=== PATIENT | male | born 1955 | race Caucasian/White ===

== ENCOUNTER 2019-04-20 16:27 | Inpatient (IN) ==
[2019-04-20] MEDS ORDERED: HEPARIN SODIUM IN D5W 25,000 UNITS/500 ML BAG IV PRN ×2 (17:11→17:16)
--- NOTE | 2019-04-20 17:56 | DR.UPDATE ---
H&P Update History and Physical Update: History and Physical reviewed and patient examined. Changes noted: Yes with the following: PRESENTED TO OUR OFFICE TODAY WITH COMPLAINTS OF SHORTNESS OF BREATH AND LEFT LOWER LEG PAIN AND SWELLING. HE WAS SENT FOR OUTPATIENT VENOUS DOPPLER AND CHEST CTA. LOWER EXTREMITY VENOUS DOPPLER WAS POSITIVE FOR DVT IN THE LEFT POPLITEAL VEIN. CHEST CTA IS POSITIVE FOR ACUTE PULMONARY EMBOLI IN THE SEGMENTAL AND SUBSEGMENTAL BRANCHES OF THE RIGHT MIDDLE LOBE AND [place]. WE ADMITTED PATIENT FOR FURTHER EVALUATION AND TREATMENT. ON ADMISSION, WE PLAN TO OBTAIN A CBC, CMP, PT/INR AND PTT. WE WILL ALSO OBTAIN A HYPER COAG PANEL. WE WILL START NORMAL SALINE AT 80ML/HR AND A HEPARIN DRIP. OTHERWISE, WE PLAN TO FOLLOW UP WITH AM LABS AND CONTINUE TO MONITOR. Prescription drug monitoring program results: PDMP was not reviewed
[2019-04-20 17:57] LABS: BASOPHILS % (AUTO) 0.5 % (0.2-1.0); EOSINOPHILS # (AUTO) 0.2 x10^3/uL (0.0-0.2); EOSINOPHILS % (AUTO) 2.4 % (0.9-2.9); HEMATOCRIT 42.9 % (42.0-54.0); HEMOGLOBIN 15.2 g/dL (13.5-18.0); LYMPHOCYTES # (AUTO) 1.8 X10^3/uL (1.3-2.9); LYMPHOCYTES % (AUTO) 24.6 % (21.0-51.0); MEAN CORPUSCULAR HEMOGLOBIN 34.2 pg (27.0-34.0); MEAN CORPUSCULAR HGB CONC 35.5 g/dL (33.0-35.0); MEAN CORPUSCULAR VOLUME 96.5 fL (80.0-100.0); MEAN PLATELET VOLUME 7.3 fL (7.4-11.0); MONOCYTES # (AUTO) 0.6 x10^3/uL (0.3-0.8); NEUTROPHILS # (AUTO) 4.5 x10^3/uL (2.2-4.8); NEUTROPHILS % (AUTO) 63.5 % (42.0-75.0); PLATELET COUNT 180 X10^3/uL (150.0-450.0); RED BLOOD COUNT 4.45 X10^6/uL (4.7-6.0); RED CELL DISTRIBUTION WIDTH 14.1 % (11.6-16.5); WHITE BLOOD COUNT 7.1 X10^3/uL (3.6-10.0)
[2019-04-20 18:09] LABS: ALANINE AMINOTRANSFERASE 24 Units/L (12-78); ALBUMIN 4.2 g/dL (3.4-5.0); ALKALINE PHOSPHATASE 85 Units/L (46-116); ASPARTATE AMINO TRANSFERASE 20 Units/L (15-37); BLOOD UREA NITROGEN 9 mg/dL (7-18); CALCIUM 9.5 mg/dL (8.5-10.1); CARBON DIOXIDE 27.8 mmol/L (21-32); CHLORIDE 101 mmol/L (98-107); CREATININE 1.13 mg/dL (0.70-1.30); SODIUM 137 mmol/L (136-145); TOTAL PROTEIN 8.3 g/dL (6.4-8.2); eGFR NON BLACK RACES > 60 (>60)
[2019-04-20] MEDS ORDERED: PREVNAR 13 IM ONE (18:10)
[2019-04-20] MEDS ORDERED: AFLURIA II4 or FLUARIX II4 IM ONE (18:10)
[2019-04-20] MEDS ORDERED: HEPARIN SODIUM INJ 5000 UNITS ONE (18:13)
[2019-04-20] MEDS: NS 1000 ML 1,000 ML IV SCH (18:32)
[2019-04-20 19:25] LABS: ERYTHROCYTE SEDIMENTATION RATE 13 MM/HOUR (0-15)
[2019-04-21] MEDS ORDERED: HEPARIN SODIUM INJ 5000 UNITS IVP ONE (01:15)
[2019-04-21] MEDS ORDERED: HEPARIN SODIUM INJ 5000 UNITS ONE (01:18)
[2019-04-21] MEDS: NS 1000 ML 1,000 ML IV SCH ×2 (05:51→20:34)
[2019-04-21 07:24] LABS: BASOPHILS % (AUTO) 0.6 % (0.2-1.0); EOSINOPHILS # (AUTO) 0.2 x10^3/uL (0.0-0.2); EOSINOPHILS % (AUTO) 2.2 % (0.9-2.9); HEMATOCRIT 42.1 % (42.0-54.0); HEMOGLOBIN 14.6 g/dL (13.5-18.0); LYMPHOCYTES # (AUTO) 2.1 X10^3/uL (1.3-2.9); LYMPHOCYTES % (AUTO) 28.1 % (21.0-51.0); MEAN CORPUSCULAR HEMOGLOBIN 33.7 pg (27.0-34.0); MEAN CORPUSCULAR HGB CONC 34.8 g/dL (33.0-35.0); MEAN CORPUSCULAR VOLUME 96.9 fL (80.0-100.0); MEAN PLATELET VOLUME 7.5 fL (7.4-11.0); MONOCYTES # (AUTO) 0.6 x10^3/uL (0.3-0.8); MONOCYTES % (AUTO) 7.5 % (0.0-13.0); NEUTROPHILS # (AUTO) 4.6 x10^3/uL (2.2-4.8); NEUTROPHILS % (AUTO) 61.6 % (42.0-75.0); PLATELET COUNT 161 X10^3/uL (150.0-450.0); RED BLOOD COUNT 4.35 X10^6/uL (4.7-6.0); RED CELL DISTRIBUTION WIDTH 13.9 % (11.6-16.5); WHITE BLOOD COUNT 7.4 X10^3/uL (3.6-10.0)
[2019-04-21 07:36] LABS: ALANINE AMINOTRANSFERASE 22 Units/L (12-78); ALBUMIN 3.5 g/dL (3.4-5.0); ALKALINE PHOSPHATASE 76 Units/L (46-116); ASPARTATE AMINO TRANSFERASE 20 Units/L (15-37); BLOOD UREA NITROGEN 7 mg/dL (7-18); CALCIUM 8.8 mg/dL (8.5-10.1); CARBON DIOXIDE 27.2 mmol/L (21-32); CHLORIDE 103 mmol/L (98-107); CREATININE 0.89 mg/dL (0.70-1.30); SODIUM 138 mmol/L (136-145); TOTAL PROTEIN 7.1 g/dL (6.4-8.2); eGFR NON BLACK RACES > 60 (>60)
[2019-04-21] MEDS ORDERED: LEVSIN SYRUP PO PRN (10:01)
[2019-04-21] MEDS: ELIQUIS PO SCH ×2 (10:03→21:25)
[2019-04-21] MEDS ORDERED: CHOLESTYRAMINE PO SCH (10:15)
[2019-04-21] MEDS ORDERED: [UNRECOGNIZED DRUG - OTHER] PO SCH (10:15)
[2019-04-21] MEDS ORDERED: NEURONTIN CAP 400 MG PO ONE (10:47)
[2019-04-21] MEDS: ZESTORETIC 10/ 12.5MG PO SCH (11:00)
[2019-04-21] MEDS: NexIUM PO SCH (11:24)
[2019-04-21] MEDS: SYNTHROID 125 mcg TAB PO SCH (11:25)
[2019-04-21] MEDS: ZYLOPRIM PO SCH (11:25)
[2019-04-21] MEDS: TOPROL XL PO SCH (11:25)
[2019-04-21] MEDS ORDERED: NEURONTIN CAP 400 MG PO SCH (21:00)
[2019-04-21] MEDS ORDERED: FLOMAX PO SCH (21:00)
--- NOTE | 2019-04-21 21:08 | PCM.PROG ---
Progress Note - Progress Note for Day of Date of Exam: 04/21/19 - Subjective Subjective: IS BEING TREATED FOR A LEFT POPLITEAL VEIN DVT AND ACUTE PULMONARY EMBOLI. HE REMAINS IN THE INTENSIVE CARE UNIT TODAY ON A HEPARIN DRIP. HE CONTINUES WITH MILD SHORTNESS OF BREATH TODAY AND SWELLING TO THE LEFT LOWER EXTREMITY. ON EXAMINATION, HEART IS REGULAR IN RATE AND RHYTHM. BILATERAL LUNGS ARE NOTED WITH DIMINISHED LUNG SOUNDS THROUGHOUT. ABDOMEN IS ROUND, SOFT, AND NON-TENDER WITH NORMAL BOWEL SOUNDS NOTED IN ALL QUADRANTS. HIS VITALS THIS MORNING ARE: 97.9-80-24-97%-152/91. LABS WERE OBTAINED. ABNORMAL LAB VALUES INCLUDE THE FOLLOWING: RBC 4.35, D-DIMER 2830. HYPERCOAG PANEL IS PENDING. TODAY, WE WILL DISCONTINUE THE HEPARIN DRIP. WE WILL START ELIQUIS 10MG PO BID AND RESUME HIS HOME MEDICATIONS. OTHERWISE, WE WILL FOLLOW UP WITH AM LABS AND CONTINUE TO MONITOR. - Past Medical Family Social History Past Med/Fam/Surg Hx: No changes since H&P Allergies: Allergies cefaclor [From Ceclor] Allergy (Verified 04/20/19 17:10) codeine Allergy (Verified 04/20/19 17:10) Penicillins Allergy (Verified 04/20/19 17:10) shellfish derived Allergy (Verified 04/20/19 20:27) CAUSES GOUT SPECIFICALLY SHRIMP Sulfa (Sulfonamide Antibiotics) [SULFA] Allergy (Verified 04/20/19 17:10) - Review of Systems ROS: No change since H&P - Vital Signs and I&O's Vital Signs: Temperature 97.9 F Pulse Rate [Apical] 80 Pulse Rate [Left Brachial] 77 Respiratory Rate 20 Blood Pressure [Left Arm] 114/79 O2 Sat by Pulse Oximetry 96 Intake and Output: Intake & Output 04/19/19 04/20/19 04/21/19 04/22/19 11:59 11:59 11:59 11:59 Intake Total 1512 / 1512 1080 / 1080 Output Total 800 / 800 Balance 712 / 712 1080 / 1080 - Physical Exam Oriented: Normal Eyes: Normal Ear: Normal Nose: Normal Throat: Normal Respiratory: Generalized, Diminished Cardiovascular: Edema (LEFT LOWER EXTREMITY ) : Normal Auscultation: Bowel Sounds: Normal Palpation: Normal Tenderness: Normal Skin: Normal Musculoskeletal: Normal Psychiatric: Normal Mood Description: Calm Affect: Normal Speech Pattern: Clear, Appropriate - Laboratory and Diagnostics Result Diagrams: 04/21/19 06:49 04/21/19 06:49 Labs: Laboratory WBC 7.4 X10^3/uL (3.6-10.0) 04/21/19 06:49 RBC 4.35 X10^6/uL (4.7-6.0) L 04/21/19 06:49 Hgb 14.6 g/dL (13.5-18.0) 04/21/19 06:49 Hct 42.1 % (42.0-54.0) 04/21/19 06:49 MCV 96.9 fL (80.0-100.0) 04/21/19 06:49 MCH 33.7 pg (27.0-34.0) 04/21/19 06:49 MCHC 34.8 g/dL (33.0-35.0) 04/21/19 06:49 RDW 13.9 % (11.6-16.5) 04/21/19 06:49 Plt Count 161 X10^3/uL (150.0-450.0) 04/21/19 06:49 MPV 7.5 fL (7.4-11.0) 04/21/19 06:49 Neut % (Auto) 61.6 % (42.0-75.0) 04/21/19 06:49 Lymph % (Auto) 28.1 % (21.0-51.0) 04/21/19 06:49 [place] % (Auto) 7.5 % (0.0-13.0) 04/21/19 06:49 Eos % (Auto) 2.2 % (0.9-2.9) 04/21/19 06:49 Baso % (Auto) 0.6 % (0.2-1.0) 04/21/19 06:49 Neut # (Auto) 4.6 x10^3/uL (2.2-4.8) 04/21/19 06:49 Lymph # (Auto) 2.1 X10^3/uL (1.3-2.9) 04/21/19 06:49 [place] # (Auto) 0.6 x10^3/uL (0.3-0.8) 04/21/19 06:49 Eos # (Auto) 0.2 x10^3/uL (0.0-0.2) 04/21/19 06:49 Baso # (Auto) 0.0 X10^3/uL (0.0-0.1) 04/21/19 06:49 Absolute Nucleated RBC 0.1 /100WBC 04/21/19 06:49 ESR 13 MM/HOUR (0-15) 04/20/19 17:31 PT 13.3 SECONDS (11.8-14.3) 04/20/19 17:31 INR Target Range - 04/20/19 17:31 INR 1.05 (0.8-1.3) 04/20/19 17:31 APTT 87.0 SECONDS (22.9-36.5) H 04/21/19 06:49 PTT Comment - 04/21/19 06:49 D-Dimer 2830 ng/mL (0-400) H* 04/21/19 06:49 Sodium 138 mmol/L (136-145) 04/21/19 06:49 Corrected Sodium TNP 04/21/19 06:49 Potassium 4.1 mmol/L (3.5-5.1) 04/21/19 06:49 Chloride 103 mmol/L (98-107) 04/21/19 06:49 Carbon Dioxide 27.2 mmol/L (21-32) 04/21/19 06:49 BUN 7 mg/dL (7-18) 04/21/19 06:49 Creatinine 0.89 mg/dL (0.70-1.30) 04/21/19 06:49 Est GFR (MDRD) Af Amer > 60 (>60) 04/21/19 06:49 Est GFR (MDRD) Non-Af > 60 (>60) 04/21/19 06:49 Glucose 92 mg/dL (65-99) 04/21/19 06:49 Calcium 8.8 mg/dL (8.5-10.1) 04/21/19 06:49 Corrected Calcium TNP 04/21/19 06:49 Total Bilirubin 0.80 mg/dL (0.2-1.0) 04/21/19 06:49 AST 20 Units/L (15-37) 04/21/19 06:49 ALT 22 Units/L (12-78) 04/21/19 06:49 Alkaline Phosphatase 76 Units/L (46-116) 04/21/19 06:49 C-Reactive Protein 8.90 mg/L (0-3.0) H 04/20/19 17:31 Total Protein 7.1 g/dL (6.4-8.2) 04/21/19 06:49 Albumin 3.5 g/dL (3.4-5.0) 04/21/19 06:49 Globulin 3.6 g/dL (2.5-4.5) 04/21/19 06:49 Albumin/Globulin Ratio 1.0 Ratio (1.1-2.1) L 04/21/19 06:49 - Plan (1) Deep vein thrombosis (DVT) of popliteal vein of left lower extremity Status: Acute Qualifiers: Chronicity: acute Qualified Code(s): I82.432 - Acute embolism and thrombosis of left popliteal vein Plan: ELIQUIS 10MG PO BID, CONTINUE TO MONITOR (2) Pulmonary emboli Status: Acute Qualifiers: Pulmonary embolism type: multiple subsegmental (without acute cor pulmonale) Qualified Code(s): I26.94 - Multiple subsegmental pulmonary emboli without acute cor pulmonale Plan: ELIQUIS 10MG PO BID, CONTINUE TO MONITOR
[2019-04-21] MEDS: QUESTRAN POWDER FOR ORAL SUSP PO SCH ×2 (21:26→21:42)
[2019-04-22 06:09] LABS: BASOPHILS % (AUTO) 0.5 % (0.2-1.0); EOSINOPHILS # (AUTO) 0.2 x10^3/uL (0.0-0.2); EOSINOPHILS % (AUTO) 2.4 % (0.9-2.9); HEMATOCRIT 40.7 % (42.0-54.0); HEMOGLOBIN 14.3 g/dL (13.5-18.0); LYMPHOCYTES # (AUTO) 1.5 X10^3/uL (1.3-2.9); LYMPHOCYTES % (AUTO) 22.1 % (21.0-51.0); MEAN CORPUSCULAR HGB CONC 35.2 g/dL (33.0-35.0); MEAN CORPUSCULAR VOLUME 96.5 fL (80.0-100.0); MEAN PLATELET VOLUME 7.3 fL (7.4-11.0); MONOCYTES # (AUTO) 0.7 x10^3/uL (0.3-0.8); MONOCYTES % (AUTO) 9.3 % (0.0-13.0); NEUTROPHILS # (AUTO) 4.6 x10^3/uL (2.2-4.8); NEUTROPHILS % (AUTO) 65.7 % (42.0-75.0); PLATELET COUNT 146 X10^3/uL (150.0-450.0); RED BLOOD COUNT 4.22 X10^6/uL (4.7-6.0); RED CELL DISTRIBUTION WIDTH 13.6 % (11.6-16.5)
[2019-04-22 06:20] LABS: ALANINE AMINOTRANSFERASE 19 Units/L (12-78); ALBUMIN 3.3 g/dL (3.4-5.0); ALKALINE PHOSPHATASE 74 Units/L (46-116); ASPARTATE AMINO TRANSFERASE 18 Units/L (15-37); BLOOD UREA NITROGEN 7 mg/dL (7-18); CALCIUM 8.9 mg/dL (8.5-10.1); CARBON DIOXIDE 23.2 mmol/L (21-32); CHLORIDE 106 mmol/L (98-107); COR CA(FOR HYPOALB) 9.5 mg/dL (8.5-10.1); CREATININE 0.75 mg/dL (0.70-1.30); SODIUM 138 mmol/L (136-145); TOTAL PROTEIN 6.9 g/dL (6.4-8.2); eGFR NON BLACK RACES > 60 (>60)
[2019-04-22] MEDS: NS 1000 ML 1,000 ML IV SCH (07:36)
[2019-04-22] MEDS: TOPROL XL PO SCH (08:42)
[2019-04-22] MEDS: NexIUM PO SCH (08:42)
[2019-04-22] MEDS: ZESTORETIC 10/ 12.5MG PO SCH (08:42)
[2019-04-22] MEDS: ZYLOPRIM PO SCH (08:43)
[2019-04-22] MEDS: ELIQUIS PO SCH (08:43)
[2019-04-22] MEDS: SYNTHROID 125 mcg TAB PO SCH (08:43)
[2019-04-22] MEDS: QUESTRAN POWDER FOR ORAL SUSP PO SCH (08:44)
[2019-04-22 09:44] VITALS: BP 154/91
[2019-04-23 19:16] LABS: ANTI-NUCLEAR ANTIBODY TEST Detected (None Detected)
[2019-04-24 02:25] LABS: PROTEIN C ACTIVITY 131 % (83-168)
[2019-04-25 19:00] LABS: PROTHROMBIN G20210A Negative
== END 2019-04-22 10:30 | disposition home or self-care (01) | DRG 299 ==
LOC: ICU 16:30
PROVIDERS: ADMIT Internal Medicine; ATTEND Internal Medicine
DX: R06.02 Shortness of breath; M79.662 Pain in left lower leg; I10 Essential (primary) hypertension; R79.82 Elevated C-reactive protein (CRP); R60.0 Localized edema; I26.99 Other pulmonary embolism without acute cor pulmonale; Z79.01 Long term (current) use of anticoagulants; I82.432 Acute embolism and thrombosis of left popliteal vein; Z23 Encounter for immunization
CPT/HCPCS: 36415; 80053; 81240; 82615; 83090; 85025; 85300; 85303; 85305; 85306; 85307; 85378; 85597; 85610; 85613; 85635; 85652; 85670; 85730; 85732; 86038; 86039; 86140; 86308; 90674; 90686; 93306; A4216; A4222; 90670; J1644; J7030